=== PATIENT | female | born 1950 | race African-American/Black ===

== ENCOUNTER 2018-05-05 08:21 | Inpatient (IN) | payer OTHER ==
[~2018-05-05] VITALS: Ht 162.6 cm; Wt 41.7 kg
[2018-05-05 08:21] VITALS: BP 110/52
[~2018-05-05 08:21] MED LIST: ADVAIR 250-501 EACH INH; AMLODIPINE BESYL5 MG PO; ASPIRIN325 PO; AZITHROMYCIN 2250 MG PO; BUSPIRONE HCL10 MG PO; COLACE 100 MG100 MG PO; ENOXAPARIN40 MG/0.1 SUBQ; ENSURE HIGH PR237 ML PO; FOLIC ACID0.4 MG PO; HYDROCODON-ACE1 EAC7 PO; IBUPROFEN 800800 M1 PO; IRON325 PO; JUVEN PACKET1 EAC1 PO; METHOTREXATE 22.5 MG PO; MIRALAX17 GM PO; NITROGLYCERIN0.4 MG SUBLING; NORCO 5-325 TA1 EACH PO; PREDNISONE 10 M10 M1; PREDNISONE 10 M10 M1 PO; PROTONIX 20 MG20 M1 PO; SIMVASTATIN20 MG PO; VENTOLIN HFA INH8 GM INH; ZITHROMAX PO
[2018-05-05] MEDS ORDERED: TYLENOL325 MG PO (08:36)
[2018-05-05] MEDS ORDERED: MIDODRINE HCL 55 M1 PO (08:37)
[2018-05-05] MEDS ORDERED: IRON325 PO (08:37)
[2018-05-05] MEDS ORDERED: MIRALAX17 GM PO (08:37)
[2018-05-05] MEDS ORDERED: JUVEN PACKET1 EAC1 PO (08:38)
[2018-05-05] MEDS ORDERED: GABAPENTIN 100100 MG PO (08:38)
[2018-05-05] MEDS ORDERED: VITAMINC500 PO (08:39)
[2018-05-05] MEDS ORDERED: NITROGLYCERIN0.4 MG SUBLING (08:39)
[2018-05-05] MEDS ORDERED: MS CONTIN15 MG PO (08:40)
[2018-05-05] MEDS ORDERED: DAKIN'S473 M2 TOP (08:41)
[2018-05-05] MEDS ORDERED: METHOTREXATE 22.5 MG PO (08:41)
[2018-05-05] MEDS ORDERED: SEROQUEL 50 MG50 MG PO (08:41)
[2018-05-05] MEDS ORDERED: REMERON15 MG PO (08:42)
[2018-05-05] MEDS ORDERED: ATIVAN0.5 MG PO (08:42)
[2018-05-05] MEDS ORDERED: OMEPRAZOLE 20 M20 M1 PO (08:42)
[2018-05-05] MEDS ORDERED: AUGMENTIN 200-1 EACH PO (08:43)
[2018-05-05] MEDS ORDERED: FOLIC ACID1 MG PO (08:43)
[2018-05-05 09:30] LABS: HEMATOCRIT 37.2 % (37.0-47.0); HEMOGLOBIN 11.6 gm/dL (12.0-15.0); MCV 83.9 fL (80.0-100.0); RBC 4.44 mil/uL (4.20-5.00); RDW 18.7 % (10.5-14.5); WBC 7.3 thou/uL (4.0-11.0)
[2018-05-05 09:39] LABS: CALCIUM 9.3 mg/dL (8.5-10.1); CREATININE 0.6 mg/dL (0.6-1.0)
[2018-05-05 09:42] LABS: APTT 24.7 Seconds (24.5-32.8); PROTIME 10.3 Seconds (9.3-11.4)
[2018-05-05 13:18] VITALS: BP 117/64
--- NOTE | 2018-05-05 13:19 | EKG ---
[place] [address] [employer] [employer] [place] [address] ELECTROCARDIOGRAM REPORT Name: SAM LESLIE Room #: 431-P ADM IN M.R.#: [id number] Admission: 05/05/18 Attend Phys: Cristiane Henriquez MD Discharge: Date of : 46 Report #: [id number] THIS REPORT FOR: //name// [facility] ED Test Date: 2018-05-05 Test Time: 09:11:38 Pat Name: SAM LESLIE Department: Room: [facility] Gender: F Database Consultant: as : 1950 Requested By: All Mai Order Number: [id number] MD: Devaughn Chung Measurements Intervals [place] Rate: 95 P: 102 MO: 143 QRS: 83 QRSD: 77 T: 89 QT: 360 QTc: 453 Interpretive Statements Sinus rhythm LAE, consider biatrial enlargement Borderline right axis deviation Borderline repolarization abnormality Compared to ECG 01/15/2018 21:04:15 Sinus tachycardia no longer present Ventricular premature complex(es) no longer present ST (T wave) deviation no longer present Electronically Signed On 05-05-2018 13:19:41 ACCREDITATION SPECIALIST by Devaughn Chung [email or web address] <ELECTRONICALLY SIGNED> By: Devaughn Chung MD 05/05/18 1319 0911 0911 Devaughn Chung MD /EPI
[2018-05-05 13:38] VITALS: BP 101/64
[2018-05-05 14:02] VITALS: BP 106/76
--- NOTE | 2018-05-05 15:46 | NUR ---
CHART INDICATED THAT ADMITTED RELATED TO LEFT HIP FX. CM REVIEWED CHART AND SPOKE WITH CARE TEAM. CM MET WITH PT AT BEDSIDE THIS DAY. PT IS ALERT TO SELF. CHART INDICATED THAT PT RESIDES AT [facility]. CM CALLED PT'S DTR ALISTAIR AT AND LEFT A VOICEMAIL. CM AWAITING RESPONSE TO CONFIRM PLOPF. CM TO FOLLOW INDICATED WITH DC PLANNING.
--- NOTE | 2018-05-05 18:30 | NUR ---
PT RECEIVED FROM [facility] ER AT 1400 TO RM 431. PT VERY CONFUSED NOT UNDERSTANDING SHE IS IN THE HOSPITAL. CRIES OUT FREQUENTLY. VERY IMPULSIVE. PULLED OUT SECOND IV. AND THEN LATER PULLED OUT TAPIA CATHETER. DR. SHAFER IN TO SEE PT AND TALKED W/ SON, DPOA ON THE PHONE LONG DISTANCE RE HIP SURGERY. CONSENT DONE ON THE PHONE. PT W/ DECUB ON COCCYX. WOUND NURSE NOTIFIED.
[2018-05-05 19:45] VITALS: BP 106/66
[2018-05-06 04:54] VITALS: BP 171/59
--- NOTE | 2018-05-06 05:15 | NUR ---
Alert but confused; according to the day nurse, the patient had pulled the folye catheter and IV off; the staff put a new IV access and washington catheter in, the patient pulled them out; the staff called the TELEHEALTH DIRECTOR , Ms. Murguia, got the oder of restraint, applied it; the staff put another IV access and washington catheter; IV fluid running. Patient had been on NPO, BG was 89 around 1999. Doctor Florence called, part of patient's home medication rsumed. VSS. will keep monitoring.
--- NOTE | 2018-05-06 05:24 | NUR ---
patient's temperature is 99.68 this AM, will pass on it to the day nurse for infection concern.
[2018-05-06 07:25] VITALS: BP 102/61
--- NOTE | 2018-05-06 08:34 | NUR ---
ASSESMENT COMPLETED. VSS. ORIENTED TO SELF. CONFUSED- STATING SHE WANTS TO GO BACK TO BED WHILE SHE'S IN BED. TAPIA TO DD. MARYCRUZ. SOFT WRIST RESTRAINTS ON. ROM PROVIDED. OPTIFOAM TO SACRUM INTACT. REPOSITIONED. PLANS TO HAVE SURGERY TODAY. ATTEMPTED TO CALL NEXT OF KIN-UNABLE TO LEAVE MESSAGE- MAILBOX FULL. LEFT MESSAGE TO ALISTAIR APPROX 0830- WAITING FOR CALL BACK. WILL CONT. TO MONITOR. BATH BEING GIVEN BY DISTRICT COURT REPORTER AT THIS TIME. WILL CONT. TO MONITOR.
--- NOTE | 2018-05-06 09:09 | NUR ---
SPOKE TO SON (DPOA) RUBI- STATED HE DOES NOT WANT PT TO GO BACK TO [facility].
--- NOTE | 2018-05-06 10:46 | HC ---
[facility] [place] [address] CONSULTATION Name: SAM LESLIE Room #: 429-P ADM IN M.R.#: [id number] Admission: 05/05/18 Attend Phys: Cristiane Henriquez MD Discharge: Date of : 46 Report #: [id number] THIS REPORT FOR: //name// CC: Daisy Van Pro DATE OF SERVICE: 05/06/2018 CHIEF COMPLAINT: Left proximal femur fracture. HISTORY OF PRESENT ILLNESS: This frail, demented 67-year-old female, lives in an extended care facility. 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 She is nonambulatory. She apparently fell from her bed, injuring the left hip. X-rays confirmed an intertrochanteric fracture with mild displacement. At the time of my evaluation, she is difficult to assess given her dementia. She does have discomfort with any movement of the left hip. She has limited movement of the right lower extremity. She is obviously confused and nonambulatory. X-rays of the pelvis, left hip confirm an intertrochanteric fracture with mild angular deformity. IMPRESSION: Left proximal femur fracture in the intertrochanteric region. PLAN: I have discussed this with the patient's family. I would suggest a surgical repair with TFN nail fixation simply for comfort and palliative care and ease of nursing. She is obviously at some risk for perioperative problems given her age and dementia and other medical issues. If they feel she is too frail to tolerate anesthetic and surgery, then they may elect to go ahead with simple palliative care. My suggestion would be to proceed with surgical repair pending their approval and/or clearance. We will plan to proceed with TFN nail fixation, left proximal femur fracture on 05/06/2018. <ELECTRONICALLY SIGNED> By: Rui Tanner MD 05/06/18 1046 0925 1032 Rui Tanner MD /nt
[2018-05-06 12:59] VITALS: BP 155/62
--- NOTE | 2018-05-06 13:09 | NUR ---
PT BACK FROM SURGERY. REFUSES PAIN MEDS AT THIS TIME. PT CONSTANTLY YELLING FOR HELP IN ROOM. APPEARS ANXIOUS. WANTS SOMEBODY IN ROOM ALL THE TIME. DRESSING TO LEFT HIP CDI. ICE PACK IN PLACE. WILL CONT. TO MONITOR.
--- NOTE | 2018-05-06 14:07 | NUR ---
CM SPOKE WITH NURSE THIS AM AND SHE INDICATED THAT PT'S SON RUBI LESLIE WAS LISTED AT PT'S DPOA . CM CALLED AND SPOKE WITH RUBI HE CONFIRMED THAT PT HAD LIVED OVER AT [facility] AND HAD BEEN ON [facility]. HE INDICATED THAT HE AND FAMILY WHO LIVE IN [facility] ARE INTERESTED IN HAVING PT GO TO A FACILITY THERE. CM INDICATED THAT REFERRAL COULD BE SENT FOR THEM TO REVIEW AND TRANSPORTATION ISSUE WAS DISCUSSED, HE WILL CALL CM BACK WITH NAME OF FACILITY IN [place]. CM TO FOLLOW INDICATED WITH DC PLANNING.
[2018-05-06 16:11] VITALS: BP 158/84
--- NOTE | 2018-05-06 16:55 | NUR ---
SPOKE TO DR. UMANZOR- WILL TRY TO SEE IF PT WILL RESPOND TO MEDS SO WE CAN DC RESTRAINTS. MORPHINE GIVEN ORDERED. WILL CONT. TO MONITOR.
--- NOTE | 2018-05-06 17:22 | O ---
[facility] [place] [address] OPERATIVE REPORT Name: SAM LESLIE Room #: 429-P [facility] IN M.R.#: [id number] Admission: 05/05/18 Attend Phys: Cristiane Henriquez MD Discharge: Date of : 48 Report #: [id number] THIS REPORT FOR: //name// CC: Daisy Henriquez Rehan Pro DATE OF SERVICE: 05/06/2018 PREOPERATIVE DIAGNOSIS: Left proximal femur intertrochanteric fracture. POSTOPERATIVE DIAGNOSIS: Left proximal femur intertrochanteric fracture. PROCEDURE: Open reduction and internal fixation of left proximal femur fracture. SURGEON: Rui Tanner MD INDICATIONS: This very frail, slender 67-year-old female has significant dementia and has had previous lower extremity problems with a right below-knee amputation. She is nonambulatory. She apparently fell from bed, injuring the left hip. X-rays confirmed an intertrochanteric fracture with some displacement. I have discussed these issues with the patient and her family who elected to go ahead with surgical repair. They understand she probably cannot resume ambulatory status as she was not ambulatory in the past, but hopefully this will improve fracture alignment and stability and allow for better comfort and nursing care. DESCRIPTION OF PROCEDURE: The patient was taken to the operating room where she was placed under general anesthesia. Prophylactic intravenous antibiotics were administered. She was positioned on the fracture table with gentle longitudinal traction, slight internal rotation. The fracture was evaluated with C-arm, which demonstrated a good alignment and reduction of the fracture. The lateral aspect of the left hip and thigh were then meticulously prepped and draped. A skin incision was made over the greater trochanter and a guidewire passed through the trochanter down the intramedullary canal. The trochanter was opened with a small reamer. A 10 x 170 mm TFN nail was inserted and advanced into an appropriate position. A lateral guidewire was then placed, positioning this low in the femoral neck and head region. It was measured and an 85 mm length helical blade fixation device was then inserted, passed this up into the femoral neck and head region with good fixation. The proximal locking screw was tightened down. The distal locking screw was placed under C-arm visualization with good purchase. Overall, alignment and stability of the fracture seemed to be satisfactory. The three small skin incisions were then irrigated and closed using 2-0 Monocryl to the subcutaneous tissues and marcelo in the skin. [address] [address] OPERATIVE REPORT Name: SAM LESLIE Room #: 429-P [facility] IN ..#: [id number] Admission: 05/05/18 Attend Phys: Cristiane Henriquez MD Discharge: Date of : 48 Report #: [id number] sterile dressing was applied. The patient was awakened and returned to recovery room in good condition. <ELECTRONICALLY SIGNED> By: Rui Tanner MD 05/06/18 1722 1121 1157 Rui Tanner MD /nt
--- NOTE | 2018-05-06 18:04 | NUR ---
RESTRAINTS OFF APPROX 1700. PT NOT PULLING ON LINES AT THIS TIME.
[2018-05-06 20:05] VITALS: BP 153/69
--- NOTE | 2018-05-07 02:50 | NUR ---
PER REPORT,PT'S RESTRAINT DC'D BC PT NOT NOT PULLING ON TUBINGS.MEDS ADMINISTERED ORDERED.PT'S O2 SAT IN UPPER 80'S,O2 INCREASED TO 3L/NC BY RT.PT REPOSITIONED WHILE IN BED Q2.DRSG TO L HIP C/D/I.PT WAS OBSERVED CRYING AND TUGGING AT TUBING AT APPROX 0245,ANXIETY AND PAIN MED ADMINISTERED,PT RESTING IN BED AT THIS TIME.IVF AND IV ABX ADMINISTERED ORDERED.TAPIA CATH TO DD.SCD ON HER L LOWER EXT.PT'S DTR CALLED EARLIER IN SHIFT WAS CONCERNED ABT PT,STATED THAT BROTHER WILL CALL IN AM FOR F/U ON DC TO ANOTHER FACILITY. FALL PRECAUTIONS IN PLACE,CALL LIGHT WITHIN REACH.
[2018-05-07 04:17] VITALS: BP 157/72
[2018-05-07 05:57] LABS: CALCIUM 7.9 mg/dL (8.5-10.1); CREATININE 0.5 mg/dL (0.6-1.0)
[2018-05-07 07:29] VITALS: BP 134/55
--- NOTE | 2018-05-07 13:31 | NUR ---
WOUND CONSULT: PT. WAS SEEN TODAY BY DR. ROCA AND MYSELF. PT. WAS SEEN IN 2017. AT THIS TIME PT. HAS 2 VERY SMALL STAGE 2 PRESSURE ULCERS TO HER COCCYX AND LEFT BUTTOCK. UPON TODAY'S ASSESEMENT THE PT. WOUND TO HER LEFT BUTTOCK HAS HEALED BUT, NOW SHE HAS A LARGE STAGE 4 TO HER SACRUM. THERE IS A SLIGHT ODOR NOTED TO THE WOUND WELL. RECOMMENDATIONS: WOUND CARE TO SACRUM: GENTLY CLEANSE AREA WITH WOUND CLEANSER OR NORMAL SALINE, PACK WITH AQUACEL TO WOUND BED, COVER WITH BORDERED FOAM, COMPLETE CARES DAILY AND PRN. PT. AND STAFF NURSE WERE INSTRUCTED ON PLAN OF CARE.
--- NOTE | 2018-05-07 15:29 | NUR ---
CM RECIEVED PC FROM PT'S SON RUBI AND HE INDICATED THAT UNDER NO CIRCUMSTANCES DID HE WANT PT TO RETURN TO [facility]. HE INDICATED THAT HE WAS WORKING WITH [facility] IN [place] TO FINE FACILITIES THEY WANTED REFERRALS SENT TO THERE BUT HAT HE DIDN'T HAVE ANY AT THIS TIME. CM INDICATED THAT WE MAY NOT BE ABLE TO GET PT TO A FACILITY IN [place] UPON DC FROM THIS CURRENT STAY. CM ASKED IF THERE WERE ANY FACILITIES THAT THEY WERE INTERESTED IN PT GOING TO UPON DC. HE INDICATED THAT REFERRAL COULD BE SENT TO [facility] FOR REVIEW FOR POSSIBLE ADMISSION. CM REQUESTED THAT DC MANAGER VALUATION FAX REFERRAL. CM TO FOLLOW INDICATED WITH DC PLANNING.
--- NOTE | 2018-05-07 15:52 | NUR ---
FAXED REFERRAL TO [facility] SPOKE TO ANA IN ADM. AND THE WILL REVIEW. BUT WILL NOT HAVE A BED AVAILABLE TIL THURSDAY. DCP TO FOLLOW.
[2018-05-07 16:24] VITALS: BP 130/53
--- NOTE | 2018-05-07 18:05 | NUR ---
Assumed pt care at 7am.Pt in bed sleeping till around 930am.Assessment completed.vss.Aerial Erector fed pt at all meals.fair appetite noted.Received call from pt's son,updates given.Pt was agitated and restless later this evening screaming continously. Lorazepam and pain med give as ordered with fair relief.Will continue to monitor.
[2018-05-07 19:29] VITALS: BP 122/43
--- NOTE | 2018-05-08 02:16 | NUR ---
PT WAS AGITATED AT THE START OF SHIFT.SCHEDULED MEDS ADMINISTERED ORDERED.PT RESTING ON HER BED AT THIS TIME.WILLIE RIOS DD.GARRY ON THE WOUND ON HER COCCYX AND L LEG INTACT.PT ON 2L/NC FOR LOW O2 SAT.FALL PRECAUTIONS IN PLACE,CALL LIGHT WITHIN REACH.
[2018-05-08 08:00] VITALS: BP 100/57
--- NOTE | 2018-05-08 15:07 | NUR ---
Assumed pt care at 7am.Pt in bed sleeping on and off till 9am.Assessment completed.vss.Pt fed at all meals by nursing staff.Good appetite noted.Turned and repositioned pt q2h for comfort.Pt was restless and agitated later this afternoon,relaxer given with relief.Pt in bed at present sleeping.Will continue to monitor.
[2018-05-08 16:00] VITALS: BP 80/50
[2018-05-08 19:53] VITALS: BP 90/49
--- NOTE | 2018-05-09 01:14 | NUR ---
Assumed care of pt at 1900. Pt oriented to self. Dressing clean and intact. Pain meds administered. Dr Gambino came and saw pt in pm. notified of pt having low bp during bobby shift and beginning of shift. New orders noted. Fall precautions in place. Will continue to monitor.
[2018-05-09 05:42] LABS: HEMOGLOBIN 8.4 gm/dL (12.0-15.0); MCH 26.2 pg (26.0-34.0); MCHC 31.1 g/dL (28.0-37.0); MCV 84.2 fL (80.0-100.0); RBC 3.21 mil/uL (4.20-5.00); RDW 17.6 % (10.5-14.5); WBC 7.9 thou/uL (4.0-11.0)
[2018-05-09 05:53] LABS: CALCIUM 7.5 mg/dL (8.5-10.1); CREATININE 0.4 mg/dL (0.6-1.0); MAGNESIUM 1.5 mg/dL (1.8-2.4)
[2018-05-09 05:55] VITALS: BP 89/51
[2018-05-09 05:55] LABS: POTASSIUM 2.5 mmol/L (3.5-5.1)
--- NOTE | 2018-05-09 07:52 | NUR ---
ASSESMENT COMPLETED. VSS. ORIENTED X1. SCREAMING FOR PAIN/HELP. NO NOTED SOA. NO NV. REPOSITIONED FOR COMFORT. PAIN MEDS GIVEN ORDERED. TAPIA TO DD. DRESSING INTACT. DRESSING TO LEFT HIP CDI. WILL CONT. TO MONITOR.
--- NOTE | 2018-05-09 10:39 | NUR ---
PT SCREAMING FOR HELP- HALLUCINATING. "SOMEBODY'S TRYING TO KILL ME". PT STATING SHE'S SCARED. 2ND DOSE OF ATIVAN GIVEN ORDERED- NO CHANGE NOTED.
--- NOTE | 2018-05-09 12:39 | NUR ---
PT STILL CONT. TO SCREAM AFTER SEROQUEL GIVEN. C/O PAIN- HYDROCODONE GIVEN FOR THE 2ND TIME. DRESSING CHANGED TO LEFT HIP AND SACRUM. REPOSITIONED IN BED. PT RESTING IN BED AT THIS TIME WITH EYES CLOSED. WILL CONT. TO MONITOR.
--- NOTE | 2018-05-09 14:50 | NUR ---
PT CONTINUOUSLY CALLS LOUDLY FOR HELP WITH EYES CLOSED APPEARS EXTREMELY TIRED. SCHEDULED MORPHINE HELD AT THIS TIME. ROOM DARKENED. WILL CONT. TO MONITOR.
[2018-05-09 17:38] VITALS: BP 105/56
[2018-05-09 20:18] VITALS: BP 120/47
--- NOTE | 2018-05-10 03:46 | NUR ---
ASSESSMENT COMPLETED. PT WAS GIVEN HS MEDS AND SHE TOOK SOME TIME TO SWALLOW IT ALL, BUT FINALLY DID IT. SHE ALSO TOOK BITES OF PUDDING AND JELLO. PT IS ALERT TO SELF.CAN BE IRRITABLE. L HIP DRSG C/D/I. LLE WITH PRAFO BOOT ON.Q2HR TURN PROVIDED. SACCRAL DRSG APPLIED. TAPIA STILL IN PLACE WITH GOOD U/O.APPEARS TO BE RESTING WELL AT THIS TIME.
[2018-05-10 05:31] VITALS: BP 143/57
[2018-05-10 05:57] LABS: HEMATOCRIT 28.6 % (37.0-47.0); MCHC 31.4 g/dL (28.0-37.0); MCV 82.7 fL (80.0-100.0); RBC 3.46 mil/uL (4.20-5.00); RDW 17.6 % (10.5-14.5); WBC 9.7 thou/uL (4.0-11.0)
[2018-05-10 06:23] LABS: CALCIUM 7.7 mg/dL (8.5-10.1); CREATININE 0.3 mg/dL (0.6-1.0); MAGNESIUM 1.6 mg/dL (1.8-2.4)
[2018-05-10 06:27] LABS: POTASSIUM 2.8 mmol/L (3.5-5.1)
[2018-05-10 10:01] VITALS: BP 131/65
--- NOTE | 2018-05-10 11:07 | NUR ---
ASSUMED CARE THIS AM, SHIFT ASSESSMENT DONE, MEDS GIVEN. TAPIA WAS TAKEN OUT THIS AM. PATIENT REMAINS MOANING AND CRYING FROM TIME TO TIME. POTTASIUM LOW THIS AM, IV REPLACEMENT IN PROGRESS. REPORTED PAIN, IV FENTANLY GIVEN THIS AM. WILL CONTINUE TO ASSESS AND ASSIST WITH ADLs NEEDED.
--- NOTE | 2018-05-10 16:10 | NUR ---
WOUND FOLLOW UP: PT. WAS SEEN TODAY BY DR. FLEMING AND MYSELF. PT. WOUND CARE ORDERS WERE CHANGED TO AID IN HEALING. RECOMMENDATIONS: CONTINUE WITH CURRENT PLAN OF CARE. PT. AND STAFF NURSE WERE INSTRUCTED ON WOUND CARE.
[2018-05-10 16:28] VITALS: BP 87/52
[2018-05-10 20:30] VITALS: BP 125/49
--- NOTE | 2018-05-10 23:14 | NUR ---
PT WAS OBSERVED CRYING IMMEDIATELY AFTER SHIFT CHANGE.OSCAR MEDS ADMINISTERED ,EFFECTIVE.DR WHITFIELD HERE TO SEE PT,ORDERS FOR LAB AND CXR NOTED FOR AM.PT REPOSITIONED WHILE IN BED,SEEMS TO BE IN GREAT PAIN WITH EACH POSITION CHANGE SHE YELLS OUT.DRSG ON HER SACRUM CHANGED,C/D/I,DR WHITFIELD SAW IT BEFORE DRSG CHANGE.INCONT OF B&B.SCD AND PRAFO BOOT ON HER L LEG.PT ON 1L/NC.PT RESTING ON HER BED AT THIS TIME.CALL LIGHT WITHIN REACH.
[2018-05-11 07:08] VITALS: BP 143/68
[2018-05-11 07:28] LABS: HEMATOCRIT 32.2 % (37.0-47.0); HEMOGLOBIN 10.4 gm/dL (12.0-15.0); MCH 26.8 pg (26.0-34.0); MCHC 32.3 g/dL (28.0-37.0); RBC 3.89 mil/uL (4.20-5.00); RDW 17.5 % (10.5-14.5); WBC 7.6 thou/uL (4.0-11.0)
[2018-05-11 07:37] LABS: CALCIUM 8.2 mg/dL (8.5-10.1); CREATININE 0.4 mg/dL (0.6-1.0); MAGNESIUM 1.6 mg/dL (1.8-2.4)
--- NOTE | 2018-05-11 09:48 | HC ---
[facility] [place] [address] CONSULTATION Name: SAM LESLIE Room #: 429-P ADM IN M.R.#: [id number] Admission: 05/05/18 Attend Phys: Cristiane Henriquez MD Discharge: Date of : 46 Report #: [id number] THIS REPORT FOR: //name// CC: Daisy Henriquez Rehan Pro DATE OF SERVICE: 05/07/2018 PERSONAL PHYSICIAN: Cristiane Henriquez MD. CHIEF COMPLAINT: Sacrococcygeal decubitus ulcer. HISTORY OF PRESENT ILLNESS: This is a 67-year-old black female who resides in a long-term care facility who supposedly fell out of bed and injured her left shoulder, was found to have a left hip fracture. The patient is now status post nailing of the hip fracture. The patient also has a history of previous right femur fracture complicated by right foot gangrene secondary to peripheral arterial disease and then subsequent right below the knee amputation. The patient herself is demented, unable to give me any history at this time. Nursing staff states that several months ago, the patient was in the hospital for her first hip fracture. She had a small stage 2 decubitus ulcer and now upon admission, she has a large stage 4 decubitus ulcer. We have been asked to follow this ulcer while she is here in the hospital. PAST MEDICAL HISTORY: Hypertension, hyperlipidemia, dementia, lung cancer, COPD. CURRENT MEDICATIONS: Multiple, I reviewed the patient's medication list. DRUG ALLERGIES: None. SOCIAL HISTORY: The patient supposedly was a former smoker for approximately 25 years. FAMILY HISTORY: Not pertinent to current medical condition. REVIEW OF SYSTEMS: Unobtainable because of the patient's demented state. PHYSICAL EXAMINATION: VITAL SIGNS: Stable. The patient is afebrile. GENERAL: This is an awake, but not alert or oriented black female who moans with movement. HEENT: Normocephalic, atraumatic. Mucous membranes are dry. Dentition is poor. Pupils are round. Sclerae white. NECK: Otherwise, supple, nontender. [facility] [address] [place] [address] CONSULTATION Name: SAM LESLIE Room #: 429-P [facility] IN .R.#: [id number] Admission: 05/05/18 Attend Phys: Cristiane Henriquez MD Discharge: Date of : 46 Report #: [id number] LUNGS: Clear. HEART: Regular. ABDOMEN: Soft, otherwise nontender. EXTREMITIES: The patient has right fvtfk-rbe-vohe amputation, which is without any type of ulcerations. Left lower extremity has surgical wound covered with fresh dressing. The left heel is intact. Distal pulses are faint. Evaluation of sacrococcygeal region reveals a fairly large decubitus ulcer. See nurses note for exact measurements. It is approximately 75% granulated tissue with exposed central bone with an area of some ecchymosis surrounding the periphery circumferentially of the wound itself. Periwound is otherwise intact. NEUROLOGIC: Cranial nerves 2-12 grossly intact. Motor and sensory grossly intact. LABORATORY VALUES: White count 7.3, hemoglobin 11.6, albumin 2.7. IMPRESSION: 1. Stage 4 sacrococcygeal decubitus ulcer present on admission. 2. Left hip fracture, now status post nailing. 3. History of right below the knee amputation secondary to peripheral vascular disease. 4. Peripheral vascular disease. 5. Generalized debility. 6. Protein-calorie malnutrition, severe -- 2.7. 7. Dementia. PLAN: At this time, we will start Dakin's half strength wet to dry dressings b.i.d., cover an ABD. We will find out from the family how aggressive they want to be with this patient in terms of putting in a PEG tube and a colostomy, to be the ideal way to try to get this a sacrococcygeal ulcer to heal. In the meantime, we will continue with wet to dry dressings, maximize the patient's oral protein supplementation as possible and continue all other current medications. I appreciate the ability to consult. We will continue to follow her. <ELECTRONICALLY SIGNED> By: Garcia Marte MD 05/11/18 0948 1132 [id number] Garcia Marte MD /nt
--- NOTE | 2018-05-11 14:57 | NUR ---
WOUND FOLLOW UP: PT. WAS SEEN TODAY BY DR. FLEMING AND MYSELF. PT. WOUND IS CLINICALLY BETTER TODAY THAN YESTERDAY. RECOMMENDATIONS: CONTINUE WITH CURRENT PLAN OF CARE. PT. AND STAFF NURSE WERE INSTRUCTED ON PLAN OF CARE.
--- NOTE | 2018-05-11 16:02 | NUR ---
s/w son ca by jayesh this am TO DISCUSS NEED FOR ADDITIONAL FACILITIES TO SEND REFERRALS FOR HIS MOM. HE IS AWARE THAT [facility] CANNOT MEET PT'S NEEDS. HE WILL PLAN TO CALL HIS SISTER IN [place] TO SEE WHAT SHE HAS DONE. INFORMED HIM THAT HIS MOM IS [facility] AND IS READY TO LEAVE HOSPITAL NOW AND THAT WE NEED OPTIONS JOSE LUIS TODAY. HE ADAMANTLY REFUSES FOR HER TO RETURN TO [facility] AND WANTS HER TO GO CLOSER TO FAMILY IN [place]. SON IS IN THE SERVICE.
--- NOTE | 2018-05-11 16:03 | NUR ---
[facility] SPO[facility] WITH BENJI IN ADM. AND SHE RECEIVED REFERRAL AND WILL GIVE IT TO ADM. JERRYSON. FAXED REFERRAL TO [facility]. SPOKE WITH BRITTON AND SHE RECEIVED REFERRAL AND WILL REVIEW. FAXED REFERRAL TO [facility] LEFT MSG WITH AFSHAN IN ADM. THAT REFERRAL SENT. FAXED REFERRAL TO [facility] SPOKE WITH DAE AND SHE RECEIVED REFERRAL AND WILL REVIEW. FAXED REFERRAL TO [facility] SPOKE WITH JESSE AND SHE RECEIVED REFERRAL AND WILL REVIEW. FAXED REF[facility]AL TO [facility] SPOKE WITH FRANCO IN ADM, AND SHE RECEIVED REFERRAL AND WILL REVIEW. FAXED REFERRAL TO [facility] SPOKE WITH JESSA IN ADM. AND SHE RECEIVED REFERRAL AND WILL REVIEW. DCP TO FOLLOW.
--- NOTE | 2018-05-11 16:17 | NUR ---
CALLED 'S SON RUBI, HE INDICATED HE WAS AT A LOSS TO WHAT TO DO. CM INDICATED THAT NURSE MYLA HAD PRINTED LIST OF FACILITIES WITHIN 5 MILES OF AMERY AND NAMED 7 FACILITIES WITH THE HIGHEST CMS RATINGS. HE INDICATED THAT REFERRALS COULD BE SENT TO THOSE 7 FACILITIES. CM TO CONTACT [facility] AND GET A QUOTE FOR STRETCHER TRANSPORT TO [facility]. DC [employer]PER[employer] PRODUCER FAXED REFERRALS TO: [facility] DELMY:CM SPOKE WITH MANASA AND THEY ARE REVIEWING REFERRAL [facility]: [facility]: [facility]: [facility]: [facility]: [facility] HODANOR:
[2018-05-11 19:20] VITALS: BP 130/65
--- NOTE | 2018-05-12 02:12 | NUR ---
ASSUMED CARE OF PT AT 1900. PT ORIENTED TO SELF ONLY. Q2H TURN. LT HIP INCISIONS WELL APPROXIMATED, DRY, AND INTACT. DRESSING ON SACRAL DECUB CHANGED. NEW DRESSING DRY AND INTACT. TAPIA CATHETER PLACED. FALL PRECAUTIONS IN PLACE. WILL CONTINUE TO MONITOR AND ASSIST WITH NEEDS.
[2018-05-12 03:09] VITALS: BP 140/43
[2018-05-12 07:50] VITALS: BP 136/54
--- NOTE | 2018-05-12 12:37 | NUR ---
CM CALLED AND GOT A QUOTE FROM [facility] TO TAKE PT VIA STRETCHER TO [place] AND THEY QUOTED $897.00. CM CALLED [facility] AND SPOKE JAE GOEL IN ADMISSIONS THEY INDICATED THAT THEY WOULD BE ABLE TO ACCEPT PT MEDICALLY AND THAT THEY WOULD NEED FAMILY TO COMPLETE A FINIANCIAL APPLICATION. THEY INDICATED THEY REQUIRE A $1000 DEPOSIT AND THAT IS APPLIED TO PT'S ROOM AND BOARD. CM CALLED PT'S SON RUBI AND NOTIFIED HIM HE INDICATED THAT HE WAS AGREEABLE TO PT GOING TO [facility] AND THAT THEY WOULD BE ABLE TO PAY FOR TRANSPORT AND THE DEPOSIT. MANASA WITH ADMISSIONS IS TO REACH OUT TO SON. CM TO FOLLOW UP WITH AFTERNOON AND ARRANGE TRANSPORT IF INDICATED.
--- NOTE | 2018-05-12 14:06 | NUR ---
WOUND FOLLOW UP: PT. WAS SEEN TODAY BY DR. FLEMING AND MYSELF. PT. WOUND IS STABLE AT THIS TIME. PT. WAS CRYING OUT FOR LOVED ONES AND IN DISTRESS AT THIS VISIT. RECOMMENDATIONS: CONTINUE WITH CURRENT PLAN OF CARE. PT. AND STAFF NURSE WERE INSTRUCTED ON PLAN OF CARE.
--- NOTE | 2018-05-12 16:03 | NUR ---
[facility] DELMY:CAN ACCEPT $1000 DEPOSIT TO HOLD ROOM AND ABOUT $8000 PER MONTH (PER SON) [facility]: CAN'T ACCEPT [facility]: CAN'T ACCEPT [facility]: [facility]: CAN'T ACCEPT [facility]: CAN'T ACCEPT- SENT TO [facility] IN [place] AND THEY CAN ACCEPT $232.00 PER DAY REQUIRE 30 DAYS UPFRONT $6,960 INFORMED SON HE'S DISCUSSING WITH FAMILY. [facility]: CAN'T ACCEPT
[2018-05-12 20:09] VITALS: BP 147/58
--- NOTE | 2018-05-12 21:27 | NUR ---
ASSUMED PT CARE AT 0700H. PT AT THE TIME SLEEPING. PT HAS NO S/S OF DISTRESS. PT L HIP CLEAN DRY AND OPEN TO AIR. PT SACRAL DRESSING CHANGED IS C/D/I. PT TOLERATED MEDS. PT CONTINUES TO SCREAM TO USE THE BATHROOM. PT HAS A SECURED TAPIA IN PLACE. PT AFTER REASSURED PT LATER IN THE EVENING SLEPT. PT ON FALL PRECAUTION AND CONTINUES TO BE MONITORED FOR SAFETY.
[2018-05-13 05:01] VITALS: BP 139/75
--- NOTE | 2018-05-13 07:52 | NUR ---
assumed pt care 0. pt confused and agitated. calls out crying for help. iv dressing c/d/i. no signs of infiltration. sacral wouund dressing changed. pt repositioned q2 hours. prafo boot in place. vss. pt rested throughout evening.
[2018-05-13 09:12] LABS: CALCIUM 8.6 mg/dL (8.5-10.1); CREATININE 0.5 mg/dL (0.6-1.0); MAGNESIUM 1.9 mg/dL (1.8-2.4); POTASSIUM 3.7 mmol/L (3.5-5.1)
--- NOTE | 2018-05-13 15:13 | NUR ---
WOUND FOLLOW UP: PT. WAS SEEN TODAY BY DR. FLEMING AND MYSELF. PT. WOUND IS STABLE AT THIS TIME. RECOMMENDATIONS: CONTINUE WITH CURRENT PLAN OF CARE. PT. AND STAFF NURSE WERE INSTRUCTED ON PLAN OF CARE.
--- NOTE | 2018-05-13 16:46 | NUR ---
PT HAS BEEN ACCEPTED TO [facility]. THEY WILL PROVIDE STRETCHER VAN TRANSPORT AT 9:00 Thursday05/17/18. CHART COPY MADE. ORDERS TO BE FAXED. [facility] WILL BE ELECTED AT THE FACILITY UPON ADMISSION. PT'S SON RUBI IS INCONTACT WITH THE BUSINESS OFFICE TO PROVIDE PAYMENT. CM TO FOLLOW INDICATED WITH DC PLANNING.
[2018-05-13 20:15] VITALS: BP 144/56
--- NOTE | 2018-05-14 04:00 | NUR ---
Assumed care of pt at 1900. Pt restless at beginning of shift. After hs meds pt calm and resting. Q2h turn. Dressing on sacral wound changed. Martinez catheter in place. Pt oriented to self. Easily arousable. Fall precaution in place. Will continue to monitor.
[2018-05-14 04:41] VITALS: BP 127/68
[2018-05-14 05:31] LABS: HEMATOCRIT 29.6 % (37.0-47.0); HEMOGLOBIN 9.1 gm/dL (12.0-15.0); MCH 25.6 pg (26.0-34.0); MCHC 30.8 g/dL (28.0-37.0); MCV 82.9 fL (80.0-100.0); RBC 3.56 mil/uL (4.20-5.00); RDW 17.5 % (10.5-14.5); WBC 9.2 thou/uL (4.0-11.0)
[2018-05-14 05:41] LABS: CALCIUM 8.6 mg/dL (8.5-10.1); CREATININE 0.4 mg/dL (0.6-1.0); MAGNESIUM 1.8 mg/dL (1.8-2.4); POTASSIUM 4.3 mmol/L (3.5-5.1)
--- NOTE | 2018-05-14 09:41 | HC ---
[facility] [place] [address] CONSULTATION Name: SAM LESLIE Room #: 429-P [facility] IN M.R.#: [id number] Admission: 05/05/18 Attend Phys: Cristiane Henriquez MD Discharge: Date of : 46 Report #: [id number] THIS REPORT FOR: //name// CC: Daisy Pro REASON FOR THE PRESENTATION: Post fall. REASON FOR CONSULTATION: Hypokalemia. HISTORY OF PRESENT ILLNESS: Very limited due to the patient's mental status. I am not really sure about her baseline, but she is known to have hypertension, hyperlipidemia, status post fall and ended up with a left proximal femur fracture. She is known to have lung cancer. She has a very poor nutritional status and is running through episodes of hypokalemia and hypomagnesemia. 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 She suffers from severe protein malnutrition. I am being requested to manage her electrolyte issues. PAST MEDICAL HISTORY: 1. Hypertension. 2. Hyperlipidemia. 3. Spiculated right upper lobe mass. 4. COPD. MEDICATIONS: 1. Augmentin. 2. Folic acid. 3. Mirtazapine. 4. Lorazepam. 5. Methotrexate. 6. Gabapentin. 7. Aspirin. 8. Buspirone. SOCIAL HISTORY: She resides at the place. REVIEW OF SYSTEMS: Completely unobtainable given the patient's mental status. PHYSICAL EXAMINATION: GENERAL: Extremely cachectic. VITAL SIGNS: Blood pressure 136/54. Temperature 36.7. HEAD AND NECK: Emaciated. CHEST: No crackles. CARDIOVASCULAR: No rub. ABDOMEN: Soft, nontender. [facility] [address] [place] [address] CONSULTATION Name: SAM LESLIE Room #: 429-P [facility] IN .R.#: [id number] Admission: 05/05/18 Attend Phys: Cristiane Henriquez MD Discharge: Date of : 46 Report #: [id number] LOWER EXTREMITIES: Post femoral fracture surgery. LABORATORY DATA: Laboratory values reviewed. Sodium is 144, potassium is 4. Magnesium is 1.7. ASSESSMENT, IMPRESSION AND PLAN: 1. Protein malnutrition. 2. Hypokalemia. 3. Hypomagnesemia. 4. All of her electrolyte issues are expected given her severe protein malnutrition. Magnesium is 1.7, with no evidence of symptoms. It will take a long time to replace her total body stores. 5. Continue with the current replacement protocol. 6. I will sign off. <ELECTRONICALLY SIGNED> By: Carlos Hoyos MD 05/14/18 [id number] [id number] Carlos Hoyos MD /nt
--- NOTE | 2018-05-14 13:53 | NUR ---
Followup: Severe protein calorie malnutrition. Limited po intake, confusion. Note possible discharge 05/17 and will start hospice. Defer further nutrition eval. PO intake as tolerated.
--- NOTE | 2018-05-14 14:26 | NUR ---
WOUND FOLLOW UP: PT. WAS SEEN TODAY BY DR. FLEMING AND MYSELF. PT. WOUND IS CLINICALLY BETTER TODAY. RECOMMENDATIONS: CONTINUE WITH CURRENT PLAN OF CARE. PT. AND STAFF NURSE WERE INSTRUCTED ON PLAN OF CARE.
[2018-05-14 19:45] VITALS: BP 129/57
--- NOTE | 2018-05-15 | NUR ---
ASSUMED PT CARE 1899. PT ASSESSMENT COMPLETED. PT YELLING OUT, CONFUSED AND ANXIOUS. IV DRESSING C/D/I. NO SIGNS OF INFILTRATION. WOUND DRESSING C/D/I. PT REPORT GIVEN TO RELEIVING NURSE.
[2018-05-15 05:14] VITALS: BP 110/49
--- NOTE | 2018-05-15 07:00 | NUR ---
SHIFT SUMMARY. NO CHANGES OF ASSESSMENT FROM PREVIOUS. MOANING AND CALLING OUT INTERMITTENTLY T/O THE NIGHT. SHE SEEMS TO BE IN PAIN WITH ANY REPOSITIONING. NORCO WAS GIVEN TWICE CHART PER EMAR. DRESSING CHANGED PER WOUND CARE ORDER. ALL LINES REMAIN INPLACE. NOT MAKING ANY PROGRESS IN THIS SHIFT.
[2018-05-15 09:36] VITALS: BP 141/65
[2018-05-15 16:00] VITALS: BP 87/52
--- NOTE | 2018-05-15 20:10 | NUR ---
ASSUMED PT CARE AT 0700H. PT CONFUSED. PT HAS NO S/S OF DISTRESS. PT TOLERATED MEDS. PT ATE OAT MEAL AND ENSURE FOR BREAKFAST. PT ATE CAKE AND HALF ENSURE FOR LUNCH. PT SLEPT. PT CONT TO YELL OUT. PT SBP ON 80S. NARCOTIC HELD. PT CONT. TO BE MONITORED FOR SAFETY.
[2018-05-15 21:20] VITALS: BP 107/71
[2018-05-16 06:10] VITALS: BP 98/56
--- NOTE | 2018-05-16 08:06 | NUR ---
PT SLEPT WELL LAST NIGHT WITH NO YELLING.REPOSITIONED WHILE IN BED.DRSG TOO HER SACRUM CHANGED.PT CONT ON IVF ORDERED.VSS.TAPIA CATH IN PLACE WITH ADEQUTE AMOUT OF URINE NOTED(1300CC).REPORT TO AM NURSE.
--- NOTE | 2018-05-16 09:54 | NUR ---
RECIEVED PT APPROX 0700. ASLEEP RESTING IN BED. PT WOKE UP UPON DOING VITALS. PT STARTED SCREAMING/TEARFUL SOON SHE WAKES UP. ASKING FOR HELP. PT SCREAMING "MY GRANDPA HURT ME"/"DONT LET THEM BOTHER ME.". REASSURANCE GIVEN. BUT PT CONT. SCREAMS FOR HELP SOON STAFF LEAVES ROOM. MEDS GIVEN ORDERED- SEE MAR. REPOSITIONED FOR COMFORT. ABLE TO FEED PT BREAKFAST. PT IN BED AT THIS TIME, STILL APPEARS SCARED/SCREAMING FOR HELP. WILL CONT. TO MONITOR.
--- NOTE | 2018-05-16 16:29 | NUR ---
[email or web address]. Flat screen tv left in pt room(429). Other important items in security. noted hearing aid batteries, but no hearing aids in belongings- spoke to pt son, son verified pt does not have/wear hearing aids. Son stated there are some items missing that he has to check with pt's previous facility-"a medical card and a laptop computer."
[2018-05-16 19:56] VITALS: BP 150/68
[2018-05-17] MEDS ORDERED: SEROQUEL 25 MG25 MG PO (07:11)
[2018-05-17] MEDS ORDERED: ENOXAPARIN30 MG/0.1 SUBQ (07:11)
[2018-05-17] MEDS ORDERED: DEPAKOTE SPRIN125 MG PO (07:11)
[2018-05-17 07:38] VITALS: BP 145/56
--- NOTE | 2018-05-17 08:05 | NUR ---
PROGRESS PT CONFUSED AND AGITATED AT START OF SHIFT HYDROCODONE GIVEN AT 1830 DRESSING CHANGE DONE AT START OF SHIFT WOUND BED WITH GOOD GRANULATION TISSUE WOUND CLEANSED WITH SALINE DAKINS SOAKED KERLIX PACKED ABD APPLIED AND SECURED WITH TAPE, PT SLEPT AFTER HS MEDS GIVEN. IV INFUSING INTO RIGHT WRIST ORDERED, TO TRANSFER TO FACILITY IN [place] BY [facility], TO COME WRITE ORDERS, ORDER TO GIVE PAIN MEDS AT SAME TIME BEFORE DISMISSAL AND TO LEAVE IN SALINE LOCK ORDER PUT UNDER NURSING REPORTED TO ONCOMING SHIFT.
[2018-05-17] MEDS ORDERED: NORCO 7.5-3251 EACH PO (09:28)
[2018-05-17] MEDS ORDERED: MS CONTIN 30 MG30 MG PO (09:28)
[2018-05-17] MEDS ORDERED: LORAZEPAM 1 MG T1 M1 PO (09:28)
--- NOTE | 2018-05-17 09:50 | NUR ---
PT IS TO DISCHARGE TO [facility] THIS DAY VIA STRETCHER VAN AROUND 9:00AM. ORDERS TO BE FAXED. REPORT TO BE CALLED TO . CHART COPY MADE. PT IS TO BE ADMITTED TO [facility] UPON HER ADMISSION TO THE FACILITY. PT'S SON RUBI IS AWARE AND AGREEABLE. NO OTHER CM INTERVETNION INDICATED AT THIS DAY.
--- NOTE | 2018-05-17 10:13 | NUR ---
PT. DISCHARGING TODAY TO [facility]. FAXED DC ORDERS/SUMMARY TO FACILITY AND SPOKE WITH TREVOR IN ADM, SHE RECEIVED ORDERS AND TRANSPORTATION WILL BE HERE AROUND 1030. FAMILY NOTIFIED PER AND UNIT NOTIFIED OF TIME OF TRANSPORT AND CHART COPY PER US. RN TO CALL REPORT TO [phone].
== END 2018-05-17 11:14 | DRG 480 ==
LOC: ER 08:21 → 4E 10:07 → EROBS 10:07 → 4E 13:04
PROVIDERS: Emergency Medicine; Internal Medicine; ADMIT Internal Medicine
PROC: 0QS704Z Reposition Left Upper Femur with Internal Fixation Device, Open Approach (ICD-10-PCS; principal; 2018-05-06)
DX: S72.142A Displaced intertrochanteric fracture of left femur, initial encounter for closed fracture (principal); L89.154 Pressure ulcer of sacral region, stage 4; E43 Unspecified severe protein-calorie malnutrition; Z68.1 Body mass index [BMI] 19.9 or less, adult; I10 Essential (primary) hypertension; E78.5 Hyperlipidemia, unspecified; J44.9 Chronic obstructive pulmonary disease, unspecified; F03.90 Unspecified dementia, unspecified severity, without behavioral disturbance, psychotic disturbance, mood disturbance, and anxiety; R41.0 Disorientation, unspecified; I73.9 Peripheral vascular disease, unspecified; E87.6 Hypokalemia; E83.42 Hypomagnesemia; J98.4 Other disorders of lung; F41.9 Anxiety disorder, unspecified; Z85.118 Personal history of other malignant neoplasm of bronchus and lung; Z87.891 Personal history of nicotine dependence; W18.39XA Other fall on same level, initial encounter; Y93.89 Activity, other specified; Y92.89 Other specified places as the place of occurrence of the external cause; Y99.8 Other external cause status
CPT/HCPCS: 10783; 50010; 50101; 50133; 50386; 51412; 51538; 51817; 52145; 52146; 56525; 57092; 62110; 62900; 70005